=== PATIENT | female | born 1970 | race Caucasian/White ===

== ENCOUNTER 2023-07-11 20:41 | Emergency (ER) | payer BC, SELFPAY ==
[2023-07-11 20:45] VITALS: BP 175/114
--- NOTE | 2023-07-11 22:49 | ED.MUSCINJ ---
HPI-Injury
General
Chief Complaint: Musculo-Skeletal Complaint
Source: patient
Exam Limitations: none
Time Seen by Provider: 07/11/23 21:56
Nursing documentation reviewed up to this point in time: agreed with
Travel History
Have you had any contact with someone who has COVID-19?: No
Do you have any symptoms of coronavirus? Fever > 100 degrees, chills, cough, shortness of breath, sore throat, loss of taste or smell, muscle aches, or headache?: No
History of Present Illness-Injury
Initial Injury comments:
52-year-old female currently receiving chemotherapy for breast CA, had her dog's leash in her left hand, she threw something, the dog went to keven it and as the dog ran his leash pulled and slammed the dorsum of her left hand against an iron
railing. This occurred at home about 4 hours ago.
Past History
Past History
ED Past Medical History: Cancer (Breast)
ED Past Surgical History: Other (Double mastectomy)
Social History
Tobacco: Non-smoker
Alcohol: Occasional
Living: with family
Review of Systems
Review of Systems
Allergies reviewed?: Yes
All Other Systems: ROS reviewed and negative except as documented in HPI and ROS
Musculoskeletal: Reports other (Pain and swelling dorsum of left hand)
Skin: Reports other (Abrasions left hand)
Phy Exam
Physical Exam
Physical Exam:
PHYSICAL EXAMINATION:
General: no apparent distress, not acutely ill
Neuro: alert and oriented.
Psychiatric: well kept. interactive and cooperative
Musculoskeletal: Moves with ease. Left hand with ecchymosis, swelling over MCP joints of 3rd, 4th and 5th fingers. Mild abrasions here. Mild abrasions and swelling of left wrist. Full ROM of all fingers, wrist.
Skin: Warm, pink. Mild superficial abrasions left hand dorsum and wrist.
Injury Course
Orders/Labs/Results
Orders:
Orders
07/11/23 20:47
Hand, Left 3 View [CR Hand - Left Min 3 Views] Urgent
Comment:
Reason For Exam: injury
07/11/23 22:57
Stone Wrap Left-Treatment ONCE
MDM/Problems Addressed
Differential Diagnosis Includes:
contusion, fracture
MDM/Problems Addressed:
52-year-old female currently receiving chemotherapy for breast CA, had her dog's leash in her left hand, she threw something, the dog went to keven it and as the dog ran his leash pulled and slammed the dorsum of her left hand against an iron
railing. This occurred at home about 4 hours ago.
Xray left hand initially read by this examiner: No bony abnormality/fracture.
Stone wrap applied
Pt states her BP is always high around medical personnel
*Critical Care Note
Total Time (30-74mins, 75-104mins- exclusive of procedures): Not Applicable
ED Attending Note
-
Portions of this chart may have been created with voice recognition software.� Occasional wrong word or��sound alike� substitutions may have occurred due to the inherent limitations of voice recognition software.
Discharge Plan
Departure
Patient Disposition: Home (Routine Discharge)
Date of Disposition: 07/11/23
Time of Disposition: 22:58
Patient with high blood pressure during this ER visit?: Yes
Condition: Good
Discharge Problem:
Contusion of left hand, Abrasion of left hand
Instructions: Contusion (DC), Using Cold for Pain, BLOOD PRESSURE
Referrals:
UNKNOWN - PT DOES,NOT KNOW [Family Provider] -
Activity Restrictions/Additional Instructions:
As we discussed, wear the Stone wrap as needed for swelling and comfort. Cold compress over the area for 15 minutes off and on throughout the day tomorrow to help reduce swelling. Ibuprofen 600 mg, with food, every 6 hours as needed for pain. Seek
medical care immediately for signs of infection which may include increasing redness, pain, swelling, fever, pus drainage or red streaks up the arm.
Interventions
Interventions:
*Risk Screen - Suicide Last Done: 07/11/23 22:53
*General Assessment Last Done: 07/11/23 20:45
*Neglect/Abuse Screening Last Done: 07/11/23 23:07
*ED COVID-19 Vaccine History Last Done: 07/11/23 20:45
*Nursing Disposition Last Done: 07/11/23 23:07
ED-Musculoskeletal Assessment Last Done: 07/11/23 21:58
Discharge Date and Time
Discharge Date/Time: 07/11/23 23:08
Print Language: CHINESE
[2023-07-11 22:52] VITALS: BP 146/108
[2023-07-11 23:07] VITALS: BP 146/108
== END 2023-07-11 23:08 | disposition home or self-care (01) ==
LOC: EMR 20:41
PROVIDERS: EMERGENCY PHYSICIAN Emergency Medicine
DX: S60.222A Contusion of left hand, initial encounter (principal); S60.512A Abrasion of left hand, initial encounter; W23.2XXD Caught, crushed, jammed or pinched between a moving and stationary object, subsequent encounter; R03.0 Elevated blood-pressure reading, without diagnosis of hypertension
CPT/HCPCS: 99283; 73130